=== PATIENT | male | born 1995 | race Caucasian/White ===

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

== ENCOUNTER 2021-08-26 20:56 | Emergency (ER) | payer SELFPAY ==
[~2021-08-26] VITALS: Ht 182 cm; Wt 61.0 kg
[2021-08-26] MEDS ORDERED: LIDOCAINE 2% VISCOUS 15 ML UDC PO ONE (21:15)
[2021-08-26] MEDS ORDERED: ANTACID SUSP 30 ML UDC (MYLANTA) PO ONE (21:15)
[2021-08-26] MEDS ORDERED: ALPRAZolam 0.25 MG (XANAX) TAB PO ONE (21:15)
--- NOTE | 2021-08-26 21:15 | ED EENT ---
History of Present Illness General Chief Complaint: Oral/Throat Problems Stated Complaint: COVID + Source: patient Exam Limitations: no limitations (JERALD ALEJANDRE APRN) History of Present Illness Date Seen by Provider: Aug 26, 2021 Time Seen by Provider: 21:10 Initial Comments To ER with sore throat difficulty swallowing. States that he awakens in the night and needs to get a drink of water several times because his throat is sore and he feels like he has thick mucus. He denies much of a cough. He had COVID at the end of July and was released from quarantine back to work August 17. He denies fevers or chills. This has caused him to have several panic attacks. Timing/Duration: this morning Severity: moderate Location: throat Prearrival Treatment: prescription meds (Protonix by an urgent care for the symptoms last week but they have not improved his symptoms) Associated Symptoms: sore throat (JERALD ALEJANDRE APRN) Allergies and Home Medications Allergies Coded Allergies: NKANo Known Allergies (Verified Allergy, Unknown, 09/02/08) Patient Home Medication List Home Medication List Reviewed: Yes (JERALD ALEJANDRE APRN) Lorazepam (Ativan) 0.5 Mg Tablet, 0.5 MG PO BID PRN for ANXIETY Prescribed by: JERALD ALEJANDRE on 08/26/212201 Prednisone (Prednisone) 20 Mg Tab, 40 MG PO DAILY Prescribed by: JERALD ALEJANDRE on 08/26/212200 Review of Systems Review of Systems Constitutional: see HPI Eyes: No Symptoms Reported Ears: No Symptoms Reported Nose: no symptoms reported Mouth: no symptoms reported Throat: no symptoms reported Respiratory: no symptoms reported Cardiovascular: no symptoms reported Musculoskeletal: no symptoms reported Skin: no symptoms reported (JERALD ALEJANDRE APRN) Past Ksvhyvj-Aptptb-Pzhtym Hx Patient Social History Tobacco Use?: No Use of E-Cig and/or Vaping dev: Yes E-Cig or Vaping type used: Nicotine Use of E-Cig and/or Vaping Khoa: Current Everyday User Substance use?: Yes Substance type: Marijuana Substance frequency: Several times a month Alcohol Use?: No Pt feels they are or have been: No (JERALD ALEJANDRE APRN) Immunizations Up To Date Tetanus Booster (TDap): Unknown Influenza Vaccine Up-to-Date: No; Not Current (JERALD ALEJANDRE APRN) Seasonal Allergies Seasonal Allergies: No (JERALD ALEJANDRE APRN) Past Medical History Adenoidectomy, Appendectomy, Orthopedic, Tonsillectomy Reproductive Disorders: No (JERALD ALEJANDRE APRN) Family Medical History Heart Disease, Diabetes, Hypertension, Other Conditions/Hx (JERALD ALEJANDRE APRN) Physical Exam Vital Signs Vital Signs - First Documented 08/26/21 21:00 Temp 36.2 Pulse 107 Resp 18 B/P (MAP) 139/89 (106) Pulse Ox 98 O2 Delivery Room Air (ELISABETH,KATE K DO) Height, Weight, BMI Height: 6'1" Weight: 145lbs. oz. 65.214252xq; 19.13 BMI Method:Stated General Appearance: WD/WN, no apparent distress Eyes: bilateral eye normal inspection, bilateral eye PERRL, bilateral eye EOMI Ears: bilateral ear auricle normal, bilateral ear canal normal, bilateral ear TM normal Mouth/Throat: normal mouth inspection; No mandibular swelling, No pharynx swelling, No pharynx tenderness, No tongue swollen, No tonsillar exudate, No tonsillar swelling, No trismus, No uvula swelling; other (Tonsils are absent, cobblestoning of the oropharynx) Neck: non-tender, full range of motion, supple, normal inspection; No lymphadenopathy (R), No lymphadenopathy (L), No tender lateral, No tender midline Respiratory: no respiratory distress, no accessory muscle use Gastrointestinal: normal bowel sounds, non tender, soft Neurologic/Psychiatric: alert, normal mood/affect, oriented x 3 Skin: warm/dry (JERALD ALEJANDRE APRN) Procedures/Interventions Suture Size: 3-0 (JERALD ALEJANDRE APRN) Progress/Results/Core Measures Results/Orders Lab Results Laboratory Tests Test 08/26/21 21:20 Range/Units White Blood Count 8.3 4.3-11.0 10^3/uL Red Blood Count 4.39 4.30-5.52 10^6/uL Hemoglobin 13.3 13.3-17.7 g/dL Hematocrit 40 40-54 % Mean Corpuscular Volume 90 80-99 fL Mean Corpuscular Hemoglobin 30 25-34 pg Mean Corpuscular Hemoglobin Concent 34 32-36 g/dL Red Cell Distribution Width 11.7 10.0-14.5 % Platelet Count 216 130-400 10^3/uL Mean Platelet Volume 10.0 9.0-12.2 fL Immature Granulocyte % (Auto) 0 % Neutrophils (%) (Auto) 54 42-75 % Lymphocytes (%) (Auto) 36 12-44 % Monocytes (%) (Auto) 8 0-12 % Eosinophils (%) (Auto) 2 0-10 % Basophils (%) (Auto) 1 0-10 % Neutrophils # (Auto) 4.5 1.8-7.8 10^3/uL Lymphocytes # (Auto) 3.0 1.0-4.0 10^3/uL Monocytes # (Auto) 0.6 0.0-1.0 10^3/uL Eosinophils # (Auto) 0.2 0.0-0.3 10^3/uL Basophils # (Auto) 0.0 0.0-0.1 10^3/uL Immature Granulocyte # (Auto) 0.0 0.0-0.1 10^3/uL Sodium Level 139 135-145 MMOL/L Potassium Level 3.9 3.6-5.0 MMOL/L Chloride Level 101 98-107 MMOL/L Carbon Dioxide Level 28 21-32 MMOL/L Anion Gap 10 5-14 MMOL/L Blood Urea Nitrogen 12 7-18 MG/DL Creatinine 1.04 0.60-1.30 MG/DL Estimat Glomerular Filtration Rate 89 BUN/Creatinine Ratio 12 Glucose Level 112 H 70-105 MG/DL Calcium Level 9.1 8.5-10.1 MG/DL Corrected Calcium 8.5-10.1 MG/DL Total Bilirubin 1.3 H 0.1-1.0 MG/DL Aspartate Amino Transf (AST/SGOT) 18 5-34 U/L Alanine Aminotransferase (ALT/SGPT) 13 0-55 U/L Alkaline Phosphatase 59 40-136 U/L C-Reactive Protein High Sensitivity 0.03 0.00-0.50 MG/DL Total Protein 7.5 6.4-8.2 GM/DL Albumin 4.7 H 3.2-4.5 GM/DL Monoscreen NEGATIVE NEGATIVE (ELISABETHKATE K DO) Medications Given in ED Current Medications Medications Dose Ordered Sig/Soniya Route Start Time Stop Time Status Last Admin Dose Admin Al Hydrox/Mg Hydrox/Simethicone 30 ml ONCE ONCE PO 08/26/21 21:15 08/26/21 21:16 DC 08/26/21 21:18 30 ML Alprazolam 0.25 mg ONCE ONCE PO 08/26/21 21:15 08/26/21 21:16 DC 08/26/21 21:18 0.25 MG Lidocaine HCl 5 ml ONCE ONCE PO 08/26/21 21:15 08/26/21 21:16 DC 08/26/21 21:18 5 ML (KATE BARBER DO) Vital Signs/I&O 08/26/21 08/26/21 21:00 22:13 Temp 36.2 36.2 Pulse 107 100 Resp 18 18 B/P (MAP) 139/89 (106) 127/89 Pulse Ox 98 98 O2 Delivery Room Air Room Air (KATE BARBER DO) Departure Impression Primary Impression: Pharyngitis Additional Impression: Postnasal drip Disposition: 01 HOME, SELF-CARE Condition: Stable Departure-Patient Inst. Decision time for Depature: 21:52 (JERALD ALEJANDRE APRN) [place]: [facility] [place] (PCP/Family) Primary Care Physician Patient Instructions: Sore Throat in Adults Add. Discharge Instructions: 1. Return to ER for any concerns 2. Follow-up with your doctor next week 3. Use your numbing spray as needed. Also look for Cepacol lozenges at [facility] or [facility]. They're cough drops with a numbing medication in them that can be helpful. Take steroids as directed daily for 3 days. Take ativan as needed twice a day for JOJO but do not operate heavy machinery or equipment for a few hours after taking this because it can be sedating. All discharge instructions reviewed with patient and/or family. Voiced unders tanding. Scripts Lorazepam (Ativan) 0.5 Mg Tablet 0.5 MG PO BID PRN for ANXIETY for 7 Days, #10 TAB Prov: JERALD ALEJANDRE APRN 08/26/21 Prednisone (Prednisone) 20 Mg Tab 40 MG PO DAILY, #8 TAB Prov: JERALD ALEJANDRE APRN 08/26/21 ATTENDING PHYSICIAN NOTE: I WAS PHYSICALLY PRESENT ER PHYSICIAN WHEN THIS PATIENT WAS IN ER, BUT I WAS NOT INVOLVED IN ANY DECISION MAKING OR ANY CARE OF THIS PATIENT. (KATE BARBER DO) JERALD ALEJANDRE APRN Aug 26, 2021 21:15 KATE BARBER DO Aug 27, 2021 03:16
[2021-08-26 21:33] LABS: BASOPHILS % (AUTO) 1 % (0-10); EOSINOPHILS # (AUTO) 0.2 10^3/uL (0.0-0.3); EOSINOPHILS % (AUTO) 2 % (0-10); HEMATOCRIT 40 % (40-54); HEMOGLOBIN 13.3 g/dL (13.3-17.7); LYMPHOCYTES % (AUTO) 36 % (12-44); MEAN CORPUSCULAR HEMOGLOBIN 30 pg (25-34); MEAN CORPUSCULAR HGB CONC 34 g/dL (32-36); MEAN CORPUSCULAR VOLUME 90 fL (80-99); MONOCYTES # (AUTO) 0.6 10^3/uL (0.0-1.0); MONOCYTES % (AUTO) 8 % (0-12); NEUTROPHILS # (AUTO) 4.5 10^3/uL (1.8-7.8); NEUTROPHILS % (AUTO) 54 % (42-75); PLATELET COUNT 216 10^3/uL (130-400); WHITE BLOOD COUNT 8.3 10^3/uL (4.3-11.0)
[2021-08-26 21:38] LABS: ALBUMIN 4.7 GM/DL (3.2-4.5); CHLORIDE 101 MMOL/L (98-107); POTASSIUM 3.9 MMOL/L (3.6-5.0); SODIUM 139 MMOL/L (135-145)
[2021-08-26 21:39] LABS: CALCIUM 9.1 MG/DL (8.5-10.1)
[2021-08-26 21:41] LABS: GLUCOSE 112 MG/DL (70-105); TOTAL PROTEIN 7.5 GM/DL (6.4-8.2)
[2021-08-26 21:42] LABS: BILIRUBIN,TOTAL 1.3 MG/DL (0.1-1.0); CARBON DIOXIDE 28 MMOL/L (21-32)
[2021-08-26 21:44] LABS: ALKALINE PHOSPHATASE 59 U/L (40-136); CREATININE SERUM 1.04 MG/DL (0.60-1.30); GFR ESTIMATED 89
[2021-08-26 21:45] LABS: BUN/CREATININE RATIO 12
[2021-08-26 21:47] LABS: ALANINE AMINOTRANSFERASE 13 U/L (0-55)
[2021-08-26] MEDS ORDERED: PRD20T PO (22:01)
[2021-08-26] MEDS ORDERED: LORA-404 PO (22:01)
[2021-08-26] MEDS ORDERED: RX-LORAZEPAM (ATIVAN) 0.5 MG TAB PPK#4 PO STA (22:06)
[2021-08-26 22:13] VITALS: BP 127/89
== END 2021-08-26 22:15 | disposition home or self-care (01) ==
LOC: EDUNIT# 20:56 → ER 20:58
DX: J02.9 Acute pharyngitis, unspecified (principal); R09.82 Postnasal drip; F17.290 Nicotine dependence, other tobacco product, uncomplicated; Z86.16 Personal history of COVID-19
CPT/HCPCS: 36415; 80053; 85025; 86141; 86308

== ENCOUNTER 2021-09-07 18:42 | Emergency (ER) | payer SELFPAY ==
[~2021-09-07 18:42] MED LIST changes: +LORA-404 PO; +PRD20T PO
--- NOTE | 2021-09-07 19:24 | ED EENT ---
History of Present Illness General Chief Complaint: Oral/Throat Problems Stated Complaint: COUGH, SORE THROAT, CONGESTION Source: patient Exam Limitations: no limitations History of Present Illness Date Seen by Provider: Sep 07, 2021 Time Seen by Provider: 19:22 Initial Comments Patient is a 25-year-old male who presents ED with sore throat. Sore throat over the past month. Difficulty swallowing. Patient states he was seen here with negative work-up. Was prescribed Ativan and prednisone without much improvement. Patient states that he continued having sore throat was prescribed antibiotics this past Tuesday without much improvement. Negative strep. Diagnosed with Covid late July with quarantine until 16 August. Patient denies of any diarrhea, vomiting, abdominal pain, chest pain. Mild nasal congestion Allergies and Home Medications Allergies Coded Allergies: JOEYANo Known Allergies (Verified Allergy, Unknown, 09/02/08) Patient Home Medication List Home Medication List Reviewed: Yes Lorazepam (Ativan) 0.5 Mg Tablet, 0.5 MG PO BID PRN for ANXIETY Prescribed by: JERALD ALEJANDRE on 08/26/212201 Prednisone (Prednisone) 20 Mg Tab, 40 MG PO DAILY Prescribed by: JERALD ALEJANDRE on 08/26/212200 Review of Systems Review of Systems Constitutional: No chills, No fever, No malaise Eyes: Denies Drainage, Denies Inflammation Ears: Denies Dizziness, Denies Pain, Denies Bloody Discharge, Denies Clear Discharge Nose: congestion; denies bloody discharge Mouth: swelling Throat: pain, swelling, painful swallowing Respiratory: cough; No short of breath Gastrointestinal: No abdominal pain, No diarrhea, No hematemesis, No nausea, No vomiting Musculoskeletal: No back pain, No joint pain Past Nbdstzd-Gbmqty-Cayiuw Hx Patient Social History Tobacco Use?: Yes E-Cig or Vaping type used: Nicotine Substance use?: No Alcohol Use?: No Immunizations Up To Date Tetanus Booster (TDap): Unknown Seasonal Allergies Seasonal Allergies: No Past Medical History Adenoidectomy, Appendectomy, Orthopedic, Tonsillectomy Reproductive Disorders: No Family Medical History Heart Disease, Diabetes, Hypertension, Other Conditions/Hx Physical Exam Vital Signs Vital Signs - First Documented 09/07/21 19:09 Temp 36.4 Pulse 61 Resp 16 B/P (MAP) 127/71 (89) Pulse Ox 98 O2 Delivery Room Air Height, Weight, BMI Height: 6'1" Weight: 145lbs. oz. 65.927307ue; 18.00 BMI Method:Stated General Appearance: WD/WN, no apparent distress Eyes: bilateral eye normal inspection, bilateral eye EOMI, bilateral eye abnormal EOM Ears: bilateral ear auricle normal, bilateral ear canal normal, bilateral ear TM normal Nose: normal inspection Mouth/Throat: normal mouth inspection, other (Cobblestone oropharynx) Neck: non-tender, full range of motion, supple Cardiovascular: regular rate, rhythm, no edema, no gallop, no JVD Respiratory: chest non-tender, lungs clear, normal breath sounds, no respiratory distress Gastrointestinal: normal bowel sounds, non tender, soft, no organomegaly Skin: normal color, warm/dry Procedures/Interventions Suture Size: 3-0 Progress/Results/Core Measures Results/Orders My Orders Orders - KYLIE HAILE Lidocaine 2% Viscous 15 Ml (Xylocaine Vi (09/07/21 19:45) Antacid Suspension (Mylanta Suspension (09/07/21 19:45) Medications Given in ED Current Medications Medications Dose Ordered Sig/Soniya Route Start Time Stop Time Status Last Admin Dose Admin Al Hydrox/Mg Hydrox/Simethicone 30 ml ONCE ONCE PO 09/07/21 19:45 09/07/21 19:46 DC 09/07/21 19:42 30 ML Lidocaine HCl 15 ml ONCE ONCE PO 09/07/21 19:45 09/07/21 19:46 DC 09/07/21 19:42 15 ML Vital Signs/I&O 09/07/21 09/07/21 19:09 20:00 Temp 36.4 36.4 Pulse 61 61 Resp 16 16 B/P (MAP) 127/71 (89) 127/71 Pulse Ox 98 98 O2 Delivery Room Air Room Air Departure Communication (Admissions) Patient was seen here on the twelfth with negative work-up. Was discharged with prednisone and Ativan. He states he has been seen twice since then and was recommended follow-up with ENT with continued sore throat. Appears to be more lower throat near his thyroid. No palpable mass or enlargement of the thyroid. He is not tachycardic, weight loss, change in hair, chest pain, tachycardia, irritability or sweating. Did offered to check a thyroid hormone but patient refused. Had a negative recent Covid. He reported negative strep outpatiently. Currently on antibiotics which he cannot recall the name. He is able to tolerate his secretions. No evidence of stridor. No enlarged lymph nodes. Denies of any drug use. He reports cutting down smoking. He has been taken PPI as the clinic stated they were concerned for acid reflux. He states GI cocktail improves his symptoms. Patient was given GI cocktail with improvement. Did offer CT of the neck to rule out any acute abnormality such as a mass. Patient would rather wait at this time. He does need to follow-up with ENT. Patient does have cobblestoning to the back of the throat. Discussed postnasal drip as a potential etiology. Discussed acid reflux as well and diet changes. Lung sounds clear bilateral. Discussed Sudafed. Patient would likely benefit with the potential scope. No purulent drainage noted the back of the throat. No neck swelling. Patient appears anxious. Impression Primary Impression: Sore throat Disposition: 01 HOME, SELF-CARE Condition: Stable Departure-Patient Inst. Decision time for Depature: 19:39 Referrals: ANDREAS MORRIS MD [facility] (PCP/Family) Primary Care Physician Patient Instructions: Sore Throat, Adult ED KYLIE HAILE Sep 07, 2021 19:24
[2021-09-07] MEDS ORDERED: ANTACID SUSP 30 ML UDC (MYLANTA) PO ONE (19:45)
[2021-09-07] MEDS ORDERED: LIDOCAINE 2% VISCOUS 15 ML UDC PO ONE (19:45)
[2021-09-07 20:00] VITALS: BP 127/71
== END 2021-09-07 20:00 | disposition home or self-care (01) ==
LOC: EDUNIT# 18:42 → ER 18:49
DX: J02.9 Acute pharyngitis, unspecified (principal)
CPT/HCPCS: 99283

== ENCOUNTER 2021-09-08 17:30 | Emergency (ER) | payer OTHER ==
[~2021-09-08] VITALS: Ht 182 cm; Wt 61.2 kg
[2021-09-08 17:35] VITALS: BP 105/71
--- NOTE | 2021-09-08 18:11 | ED General ---
General Chief Complaint: Exposure Stated Complaint: NEEDLE STICK Nursing Triage Note: PT AMBULATORY TO ER. REPORTS WAS WORKING AND HAND WAS IN A DRAIN, PT GOT STUCK BY A NEEDLE TO L INDEX FINGER, REPORTS IMMEDIATELY CLEANED WOUND. LAST TETANUS APPROX 5 YEARS AGO. Source of Information: Patient Exam Limitations: No Limitations History of Present Illness Date Seen by Provider: Sep 08, 2021 Time Seen by Provider: 18:08 Initial Comments Patient is a 25-year-old male who presents ED for work comp injury. Patient was stuck by a unknown needle while working. Works for [employer]. Patient states he is wearing latex gloves. Was stuck by a needle on the left index finger. He report mild bleeding. Normal active range of motion. 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 Patient believes he is up-to-date on his hep B vaccine. Not up-to-date on his tetanus within the past 5 years. No current swelling or bruising. Allergies and Home Medications Allergies Coded Allergies: NKANo Known Allergies (Verified Allergy, Unknown, 09/02/08) Patient Home Medication List Home Medication List Reviewed: Yes Lorazepam (Ativan) 0.5 Mg Tablet, 0.5 MG PO BID PRN for ANXIETY Prescribed by: JERALD ALEJANDRE on 08/26/212201 Prednisone (Prednisone) 20 Mg Tab, 40 MG PO DAILY Prescribed by: JERALD ALEJANDRE on 08/26/212200 Review of Systems Review of Systems Constitutional: No chills, No diaphoresis, No dizziness, No fever EENTM: No ear pain, No eye pain, No tearing, No vision loss Respiratory: No dyspnea on exertion, No orthopnea, No short of breath Cardiovascular: No chest pain Gastrointestinal: No abdominal pain, No diarrhea, No nausea, No vomiting Genitourinary: No decreased output, No dysuria, No frequency Musculoskeletal: No back pain, No joint swelling, No muscle pain Skin: other (Puncture wound left dorsum index finger. No swelling, erythema or ecchymosis.) Past Hwrqsbr-Kgpgec-Nvzkky Hx Patient Social History Use of E-Cig and/or Vaping dev: Yes Substance use?: No Alcohol Use?: No Pt feels they are or have been: No Immunizations Up To Date Tetanus Booster (TDap): Unknown Seasonal Allergies Seasonal Allergies: No Past Medical History Adenoidectomy, Appendectomy, Orthopedic, Tonsillectomy Reproductive Disorders: No Family Medical History Heart Disease, Diabetes, Hypertension, Other Conditions/Hx Physical Exam Vital Signs Vital Signs - First Documented Capillary Refill : Height, Weight, BMI Height: 6'1" Weight: 145lbs. oz. 65.674252tx; 18.00 BMI Method:Stated General Appearance: No Apparent Distress, WD/WN Eyes: Bilateral Eye Normal Inspection, Bilateral Eye PERRL, Bilateral Eye EOMI HEENT: PERRL/EOMI, TMs Normal, Normal ENT Inspection, Pharynx Normal Neck: Full Range of Motion, Normal Inspection, Non Tender, Supple Respiratory: Chest Non Tender, Lungs Clear, Normal Breath Sounds, No Accessory Muscle Use, No Respiratory Distress Cardiovascular: Regular Rate, Rhythm, No Edema, No Gallop, No JVD Gastrointestinal: Normal Bowel Sounds, No Organomegaly, No Pulsatile Mass, Non Tender, Soft Extremity: Other (Puncture wound to left dorsum index finger. No swelling, erythema or ecchymosis.) Skin: Normal Color, Warm/Dry Procedures/Interventions Suture Size: 3-0 Progress/Results/Core Measures Suspected Sepsis SIRS Temperature: Pulse: 67 Respiratory Rate: 20 Blood Pressure 105 /71 Mean: 82 Results/Orders Lab Results Laboratory Tests Test 09/08/21 18:26 Range/Units My Orders Orders - KYLIE HAILE Hepatitis B Surface Antibody (09/08/21 18:13) Hepatitis Be Antigen (09/08/21 18:13) Hepatitis C Antibody (09/08/21 18:13) Hiv 1&2 Antibody (09/08/21 18:13) Dipht,Pertuss(Acell),Tet Adult (Boostrix (09/08/21 18:15) Medications Given in ED Current Medications Medications Dose Ordered Sig/Soniya Route Start Time Stop Time Status Last Admin Dose Admin Diphtheria/ Tetanus/Acell Pertussis 0.5 ml ONCE ONCE IM 09/08/21 18:15 09/08/21 18:16 DC 09/08/21 18:22 0.5 ML Vital Signs/I&O 09/08/21 09/08/21 17:35 17:35 Temp 36.6 36.6 Pulse 67 67 Resp 20 20 B/P (MAP) 105/71 (82) 105/71 Pulse Ox 98 98 O2 Delivery Room Air Room Air Capillary Refill : Blood Pressure Mean: 82 Departure Communication (Admissions) Patient has a small puncture wound to the left index finger. No active bleeding. Updated patient's tetanus. This is a work comp injury. Discussed patient with occupational health who recommended hep B, hep C HIV testing with no treatment prophylactically at this time. Patient appears in no acute distress. Patient believes he is up-to-date on his hep B vaccines. Extensive irrigation and cleaning before arrival with soap and water. Discussed Neosporin. Continue monitoring. Discussed patient with HOIST WORKER at occupational health who will follow up with patient on Tuesday with results. We will continue monitoring. Recommend no treatment prophylactically at this time. Impression Primary Impression: Needle stick injury Disposition: HOME, SELF-CARE Condition: Stable Departure-Patient Inst. Decision time for Depature: 18:42 Referrals: [facility] [place] Primary Care Physician Patient Instructions: Wound Care Add. Discharge Instructions: Occupational health will contact you. Keep the area clean All discharge instructions reviewed with patient and/or family. Voiced understanding. KYLIE HAILE Sep 08, 2021 18:11
[2021-09-08] MEDS ORDERED: TETANUS,DIPTH,PERTUSS P/F (BOOSTRIX) 0.5 ML VIAL IM ONE (18:15)
[2021-09-09 23:38] LABS: HEPATITIS C ANTIBODY C Non-Reactive (Non-Reactive)
== END 2021-09-08 18:51 | disposition home or self-care (01) ==
LOC: EDUNIT# 17:30 → ER 17:34
DX: S61.231A Puncture wound without foreign body of left index finger without damage to nail, initial encounter (principal); I10 Essential (primary) hypertension; E11.9 Type 2 diabetes mellitus without complications; Z23 Encounter for immunization; W46.1XXA Contact with contaminated hypodermic needle, initial encounter
CPT/HCPCS: 86703; 86803; 87350; 99283; G0499; 36415; 86706; 90715

== ENCOUNTER 2021-09-12 22:11 | Emergency (ER) | payer SELFPAY ==
[~2021-09-12] VITALS: Ht 185.5 cm; Wt 61.2 kg
--- NOTE | 2021-09-12 23:25 | ED EENT ---
History of Present Illness General Chief Complaint: Oral/Throat Problems Stated Complaint: THROAT SWELLING/FEELING OF TROUBLE BREATHING Nursing Triage Note: PT ARRIVED BY PRIVATE VEHICLE WITH CHIEF COMPLAINT OF THROAT PAIN. PT IS ALERT, ORIENTED X 4 AND AMBULATORY. PT STATED HE HAS BEEN HAVING ONGOING ISSUES FOR THE PAST 3 WEEKS OF DIFFICULTY SWALLOWING, THROAT PAIN. HE WAS TOLD TO SEE ENT AND HAS AN APPOINTMENT BUT IT HAS GOTTEN WORSE TODAY. PT WAS RECENTLY SEEN AT CLINIC AND THEY CHECKED HIS THYROID BUT RESULTS AREN'T BACK YET. PT STATED THEY THINK HE MIGHT NEED AN US. PT'S VITALS WERE DONE AND PT IS NOT IN RESPIRATORY DISTRESS. Source: patient Exam Limitations: no limitations History of Present Illness Date Seen by Provider: Sep 12, 2021 Time Seen by Provider: 23:00 Initial Comments Patient to ER by private conveyance with chief complaint of sore throat going on for past 3 weeks. Is progressively gotten worse over the past 3 to 4 days. Initially did a course of steroids followed by a course of amoxicillin. He has not had any tests to prove strep. He was referred on to an ENT in [place] and has an appointment on Tuesday, 4 days from now. He says it hurts to swallow foods has been just doing liquids. He feels like he is lost about 10 pounds over the past week due to his liquid diet. No nausea vomiting diarrhea. No EGD or history of strictures. No history of acid reflux. He was put on an antiacid medicine for 2 weeks which made no difference in his symptoms. Allergies and Home Medications Allergies Coded Allergies: NKANo Known Allergies (Verified Allergy, Unknown, 09/02/08) Patient Home Medication List Home Medication List Reviewed: Yes Lorazepam (Ativan) 0.5 Mg Tablet, 0.5 MG PO BID PRN for ANXIETY Prescribed by: JERALD ALEJANDRE on 08/26/212201 Nystatin (Nystatin) 100,000 Unit/1 Ml Oral.susp, 5 ML PO QID Prescribed by: MARK CASANOVA on 09/13/21 0020 Prednisone (Prednisone) 20 Mg Tab, 40 MG PO DAILY Prescribed by: JERALD ALEJANDRE on 08/26/212200 Review of Systems Review of Systems Constitutional: No chills, No diaphoresis Eyes: Denies Blindness, Denies Blurred Vision, Denies Drainage Ears: Denies Dizziness, Denies Pain Nose: denies clots, denies congestion Mouth: denies clots, denies pain, denies swelling Throat: see HPI, pain, hoarse (Scant); denies muffled; painful swallowing; denies difficulty with fluids Respiratory: No cough, No phlegm, No short of breath Cardiovascular: No chest pain, No edema All Other Systems Reviewed Negative Unless Noted: Yes Past Hawfnku-Krlmcc-Occacz Hx Patient Social History Tobacco Use?: Yes Use of E-Cig and/or Vaping dev: Yes Substance use?: Yes Substance type: Marijuana Alcohol Use?: No Pt feels they are or have been: No Immunizations Up To Date Tetanus Booster (TDap): Unknown Seasonal Allergies Seasonal Allergies: No Past Medical History Adenoidectomy, Appendectomy, Orthopedic, Tonsillectomy Reproductive Disorders: No Family Medical History Heart Disease, Diabetes, Hypertension, Other Conditions/Hx Physical Exam Vital Signs Vital Signs - First Documented 09/12/21 22:25 Temp 36.2 Pulse 105 Resp 16 B/P (MAP) 121/72 (88) Pulse Ox 99 O2 Delivery Room Air Height, Weight, BMI Height: 6'1" Weight: 145lbs. oz. 65.683541px; 17.00 BMI Method:Stated General Appearance: WD/WN, no apparent distress Eyes: bilateral eye normal inspection, bilateral eye PERRL, bilateral eye EOMI Ears: bilateral ear auricle normal, bilateral ear canal normal, bilateral ear TM normal Nose: normal inspection; No active bleeding Mouth/Throat: No foreign body; other (Erythematous retropharynx with white lacy plaques on the back of the tongue. No swelling of the uvula or fosses. No stridor) Neck: full range of motion, supple, normal inspection, other (No goiter or nodule or appearance or palpation of the thyroid.) Cardiovascular: normal peripheral pulses, regular rate, rhythm Respiratory: lungs clear, normal breath sounds, no respiratory distress, no accessory muscle use Gastrointestinal: normal bowel sounds, non tender, soft Neurologic/Psychiatric: alert, normal mood/affect, oriented x 3 Procedures/Interventions Suture Size: 3-0 Progress/Results/Core Measures Results/Orders My Orders Orders - MARK CASANOVA Leslie Prep (09/12/21 23:26) Vital Signs/I&O 09/12/21 22:25 Temp 36.2 Pulse 105 Resp 16 B/P (MAP) 121/72 (88) Pulse Ox 99 O2 Delivery Room Air Blood Pressure Mean: 88 Progress Progress Note : Time: 23:30 Progress Note White lacy plaque looks like thrush. We will get a LESLIE prep to prove this. He still would encourage him to follow-up with ENT for thorough evaluation as well as a primary care doctor to continue work-up. He has a TSH and thyroid labs obtained yesterday pending. He does not look to have a goiter nor does he like to be on thyrotoxicosis storm. He certainly has concerning gaunt appearance that would need a thorough outpatient examination. He is not dehydrated. He is drinking fluids well. Departure Impression Primary Impression: Thrush of mouth and esophagus Disposition: HOME, SELF-CARE Condition: Stable Departure-Patient Inst. Decision time for Depature: 00:18 Referrals: [facility] (PCP/Family) Primary Care Physician Patient Instructions: Thrush (DC) Add. Discharge Instructions: Nystatin 5 mL swish around your mouth and swallow 4 times a day for the next 2 weeks. Keep your follow-up appointment with ENT. Chloraseptic sprays, salt water gargles, throat lozenges as necessary for pain All discharge instructions reviewed with patient and/or family. Voiced understanding. Scripts Nystatin (Nystatin) 100,000 Unit/1 Ml Oral.susp 5 ML PO QID for 14 Days, #300 ML 0 Refills Prov: MARK CASANOVA 09/13/21 MARK CASANOVA Sep 12, 2021 23:25
[2021-09-13] MEDS ORDERED: NYST1000 PO (00:20)
[2021-09-13 00:54] VITALS: BP 114/72
== END 2021-09-13 00:54 | disposition home or self-care (01) ==
LOC: EDUNIT# 22:11 → ER 22:14
DX: B37.0 Candidal stomatitis (principal); B37.81 Candidal esophagitis; Z72.0 Tobacco use
CPT/HCPCS: 87220; 99283

== ENCOUNTER 2021-09-23 20:03 | Emergency (ER) | payer SELFPAY ==
[~2021-09-23] VITALS: Ht 185.5 cm; Wt 61.2 kg
[~2021-09-23 20:03] MED LIST changes: +NYST1000 PO
[2021-09-23] MEDS ORDERED: NS IV 1000 ML 1,000 ML ONE (21:09)
[2021-09-23] MEDS ORDERED: PROMETHAZINE INJ 25 MG/ML (PHENERGAN) AMP ONE (21:09)
--- NOTE | 2021-09-23 21:25 | ED General ---
General Stated Complaint: FEVER/VOMITING/BODYACHES/CHILLS Source of Information: Patient Exam Limitations: No Limitations (JERALD ALEJANDRE APRN) History of Present Illness Date Seen by Provider: Sep 23, 2021 Time Seen by Provider: 21:23 Initial Comments To ER with chills vomiting nausea diarrhea onset this morning. Was seen at [facility] and given an injection of a steroid a pain medication and some nausea medicine which did not help. Timing/Duration: 12 Hours Severity: Moderate Associated Systoms: Denies Symptoms, Nausea/Vomiting (JERALD ALEJANDRE APRN) Allergies and Home Medications Allergies Coded Allergies: NKANo Known Allergies (Verified Allergy, Unknown, 09/02/08) Patient Home Medication List Home Medication List Reviewed: Yes (JERALD ALEJANDRE APRN) Hydrocodone/Acetaminophen (Hydrocodone-Acetamin 5-325 mg) 1 Each Tablet, 1 TAB PO Q4H PRN for PAIN-MODERATE (5-7) Prescribed by: JERALD ALEJANDRE on 09/23/212251 Lorazepam (Ativan) 0.5 Mg Tablet, 0.5 MG PO BID PRN for ANXIETY Prescribed by: JERALD ALEJANDRE on 08/26/212201 Nystatin (Nystatin) 100,000 Unit/1 Ml Oral.susp, 5 ML PO QID Prescribed by: MARK CASANOVA on 09/13/21 0020 Prednisone (Prednisone) 20 Mg Tab, 40 MG PO DAILY Prescribed by: JERALD ALEJANDRE on 08/26/212200 Review of Systems Review of Systems Constitutional: see HPI, chills, fever EENTM: see HPI Respiratory: no symptoms reported Cardiovascular: no symptoms reported Gastrointestinal: nausea, vomiting Genitourinary: no symptoms reported Musculoskeletal: see HPI Skin: no symptoms reported Psychiatric/Neurological: No Symptoms Reported Hematologic/Lymphatic: No Symptoms Reported Immunological/Allergic: no symptoms reported (JERALD ALEJANDRE APRN) Past Ccntxkq-Kjqabd-Jumpqp Hx Immunizations Up To Date Tetanus Booster (TDap): Unknown (JERALD ALEJANDRE APRN) Seasonal Allergies Seasonal Allergies: No (JERALD ALEJANDRE APRN) Past Medical History Adenoidectomy, Appendectomy, Orthopedic, Tonsillectomy Reproductive Disorders: No (JERALD ALEJANDRE APRN) Family Medical History Heart Disease, Diabetes, Hypertension, Other Conditions/Hx (JERALD ALEJANDRE APRN) Physical Exam Vital Signs Vital Signs - First Documented 09/23/21 20:50 Temp 36.3 Pulse 76 Resp 18 B/P (MAP) 111/70 (84) Pulse Ox 100 O2 Delivery Room Air (KATE BARBER ) Vital Signs Capillary Refill : (JERALD ALEJANDRE APRN) Height, Weight, BMI Height: 6'1" Weight: 145lbs. oz. 65.559170bi; 17.00 BMI Method:Stated General Appearance: No Apparent Distress, WD/WN Eyes: Bilateral Eye Normal Inspection, Bilateral Eye PERRL, Bilateral Eye EOMI Neck: Full Range of Motion, Normal Inspection Respiratory: No Accessory Muscle Use, No Respiratory Distress Cardiovascular: Regular Rate, Rhythm, Normal Peripheral Pulses Gastrointestinal: Normal Bowel Sounds, Non Tender, Soft Extremity: Normal Capillary Refill, Normal Inspection Neurologic/Psychiatric: Alert, Oriented x3 Skin: Normal Color, Warm/Dry (JERALD ALEJANDRE APRN) Procedures/Interventions Suture Size: 3-0 (JERALD ALEJANDRE APRN) Progress/Results/Core Measures Suspected Sepsis SIRS Temperature: Pulse: Respiratory Rate: Laboratory Tests 09/23/21 21:30: White Blood Count 12.7H Blood Pressure / Mean: Laboratory Tests 09/23/21 21:30: Creatinine 0.97, Platelet Count 219, Total Bilirubin 2.4H (JERALD ALEJANDRE APRN) Results/Orders Lab Results Laboratory Tests Test 09/23/21 21:25 09/23/21 21:30 09/23/21 22:03 Range/Units Influenza Type A Antigen NEGATIVE NEGATIVE Influenza Type B Antigen NEGATIVE NEGATIVE White Blood Count 12.7 H 4.3-11.0 10^3/uL Red Blood Count 4.94 4.30-5.52 10^6/uL Hemoglobin 15.2 13.3-17.7 g/dL Hematocrit 45 40-54 % Mean Corpuscular Volume 92 80-99 fL Mean Corpuscular Hemoglobin 31 25-34 pg Mean Corpuscular Hemoglobin Concent 34 32-36 g/dL Red Cell Distribution Width 12.0 10.0-14.5 % Platelet Count 219 130-400 10^3/uL Mean Platelet Volume 9.7 9.0-12.2 fL Immature Granulocyte % (Auto) 0 % Neutrophils (%) (Auto) 90 H 42-75 % Lymphocytes (%) (Auto) 4 L 12-44 % Monocytes (%) (Auto) 4 0-12 % Eosinophils (%) (Auto) 1 0-10 % Basophils (%) (Auto) 0 0-10 % Neutrophils # (Auto) 11.5 H 1.8-7.8 10^3/uL Lymphocytes # (Auto) 0.5 L 1.0-4.0 10^3/uL Monocytes # (Auto) 0.5 0.0-1.0 10^3/uL Eosinophils # (Auto) 0.1 0.0-0.3 10^3/uL Basophils # (Auto) 0.0 0.0-0.1 10^3/uL Immature Granulocyte # (Auto) 0.1 0.0-0.1 10^3/uL Neutrophils % (Manual) 89 % Lymphocytes % (Manual) 4 % Monocytes % (Manual) 5 % Eosinophils % (Manual) 2 % Blood Morphology Comment NORMAL Sodium Level 141 135-145 MMOL/L Potassium Level 4.5 3.6-5.0 MMOL/L Chloride Level 103 98-107 MMOL/L Carbon Dioxide Level 24 21-32 MMOL/L Anion Gap 14 5-14 MMOL/L Blood Urea Nitrogen 15 7-18 MG/DL Creatinine 0.97 0.60-1.30 MG/DL Estimat Glomerular Filtration Rate 112 BUN/Creatinine Ratio 15 Glucose Level 111 H 70-105 MG/DL Calcium Level 9.5 8.5-10.1 MG/DL Corrected Calcium 8.5-10.1 MG/DL Total Bilirubin 2.4 H 0.1-1.0 MG/DL Aspartate Amino Transf (AST/SGOT) 40 H 5-34 U/L Alanine Aminotransferase (ALT/SGPT) 28 0-55 U/L Alkaline Phosphatase 63 40-136 U/L Total Protein 7.9 6.4-8.2 GM/DL Albumin 4.7 H 3.2-4.5 GM/DL Triglycerides Level 55 <150 MG/DL Cholesterol Level 139 < 200 MG/DL LDL Cholesterol Direct 89 1-129 MG/DL VLDL Cholesterol 11 5-40 MG/DL HDL Cholesterol 50 40-60 MG/DL Lipase 995 H 8-78 U/L Serum Alcohol < 10 <10 MG/DL Urine Color YELLOW Urine Clarity CLEAR Urine pH 7.5 5-9 Urine Specific [facility] 1.020 1.016-1.022 Urine Protein 1+ H NEGATIVE Urine Glucose (UA) NEGATIVE NEGATIVE Urine Ketones NEGATIVE NEGATIVE Urine Nitrite NEGATIVE NEGATIVE Urine Bilirubin 1+ H NEGATIVE Urine Urobilinogen 1.0 < = 1.0 MG/DL Urine Leukocyte Esterase NEGATIVE NEGATIVE Urine RBC (Auto) NEGATIVE NEGATIVE Urine RBC NONE /HPF Urine WBC 0-2 /HPF Urine Squamous Epithelial Cells 0-2 /HPF Urine Renal Epithelial Cells NONE /HPF Urine Crystals NONE /LPF Urine Bacteria TRACE /HPF Urine Casts NONE /LPF Urine Mucus LARGE H /LPF Urine Culture Indicated NO (KATE BARBER DO) My Orders Orders - KATE BARBER DO Promethazine Injection (Phenergan Injec (09/23/21 21:09) Ns Iv 1000 Ml (Sodium Chloride 0.9%) (09/23/21 21:09) (KATE BARBER DO) Medications Given in ED Current Medications Medications Dose Ordered Sig/Soniya Route Start Time Stop Time Status Last Admin Dose Admin Fentanyl Citrate 25 mcg ONCE ONCE IVP 09/23/21 23:00 09/23/21 23:01 DC 09/23/21 23:20 25 MCG Iohexol 100 ml ONCE ONCE IV 09/23/21 22:45 09/23/21 23:05 DC 09/23/21 22:44 100 ML Promethazine HCl 25 mg ONCE ONCE IVP 09/23/21 21:30 09/23/21 21:31 DC 09/23/21 21:41 25 MG Sodium Chloride 100 ml ONCE ONCE IV 09/23/21 22:45 09/23/21 23:05 DC 09/23/21 22:44 80 ML (KATE BARBER DO) Vital Signs/I&O 09/23/21 09/23/21 09/24/21 20:50 20:50 00:25 Temp 36.3 Pulse 76 80 Resp 18 18 B/P (MAP) 111/70 (84) 92/61 Pulse Ox 100 99 O2 Delivery Room Air Room Air Room Air 09/23/21 23:59 Intake Total 1000 ml Balance 1000 ml (KATE BARBER DO) Vital Signs/I&O Capillary Refill : (JERALD ALEJANDRE APRN) Departure Communication (Admissions) Family Conversation NAME: RAJANI SANDERSON MED REC#: [id number] PT STATUS: REG ER : 1995 PHYSICIAN: JERALD ALEJANDRE APRN ADMIT DATE: 09/23/21/ER Draft Date of Exam:09/23/21 CT ABDOMEN/PELVIS W INDICATION: Abdominal pain and vomiting. EXAMINATION: CT abdomen and pelvis with contrast, 09/23/2021. All CT scans use one or more of the following dose optimizing techniques: automated exposure control, MA and/or KvP adjustment based on patient size and exam type or iterative reconstruction. COMPARISON: 09/02/2008. FINDINGS: The lack of intraperitoneal fat markedly limits evaluation of the bowel with the appendix not seen with certainty. It is possibly in the anterior aspect of the right lower quadrant with no surrounding inflammatory change seen. There are diffusely distended and fluid-filled small bowel loops throughout the abdomen and pelvis suggesting enteritis. There is no free air. The gallbladder, liver, spleen and pancreas are normal. Adrenal glands and kidneys unremarkable. The lung bases clear. The osseous structures intact. There is a sclerotic focus in the left proximal femur nonspecific but likely a bone island. This is stable from previous CT. IMPRESSION: Findings suggestive of enteritis with overall limited evaluation given lack of intraperitoneal fat. Appendix not seen with certainty but no focal inflammation seen in the right lower quadrant. Dictated on workstation # [id number] Dict: 09/23/21 2250 Trans: 09/23/21 225 PJ [id number] Interpreted by: VIKI GALLEGOS MD Electronically signed by: [id number] that he is feeling better after the Phenergan though he does not feel good. He does have some abdominal pain though it is mostly the lower abdomen. Does not really have much upper abdominal pain. I offered him hospital admission with IV fluids and pain medication and nausea medication versus discharged home with pain medication clear liquid diet nausea medicine. He elects to go on home and assures me he will return if he has any worsening but he would prefer to go home. I will send him home with some hydrocodone. He states he already has Zofran at home. He will follow a clear liquid diet. I instructed him the need to follow-up with [facility] tomorrow to schedule gallbladder ultrasound and to return to ER for any fevers worsening pain uncontrollable vomiting or any other concerns. (JERALD ALEJANDRE APRN) Impression Primary Impression: Pancreatitis Additional Impression: Nausea vomiting and diarrhea Disposition: HOME, SELF-CARE Condition: Stable Departure-Patient Inst. Decision time for Depature: 21:42 (JERALD ALEJANDRE APRN) Referrals: NO,LOCAL PHYSICIAN (PCP/Family) Primary Care Physician Patient Instructions: Pancreatitis Add. Discharge Instructions: Patient to call [facility] tomorrow to make an appointment to be seen for gallbladder ultrasound. Return to ER for any worsening symptoms like intolerable pain, fevers, uncontrollable nausea and vomiting. Clear liquids only for the next 24 hours. Pain medication as directed. Nausea medication as needed. Scripts Hydrocodone/Acetaminophen (Hydrocodone-Acetamin 5-325 mg) 1 Each Tablet 1 TAB PO Q4H PRN for PAIN-MODERATE (5-7), #10 TAB Prov: JERALD ALEJANDRE APRN 09/23/21 Work/School Note: Work Release Form Date Seen in the Emergency Department: Sep 23, 2021 Return to Work: Sep 26, 2021 ATTENDING PHYSICIAN NOTE: I WAS PHYSICALLY PRESENT ER PHYSICIAN WHEN THIS PATIENT WAS IN ER, BUT I WAS NOT INVOLVED IN ANY DECISION MAKING OR ANY CARE OF THIS PATIENT. (KATE BARBER DO) Copy Copies To 1: JONAH BAILEY MD, PETER J APRN Sep 23, 2021 21:25 KATE BARBER DO Sep 24, 2021 01:14
[2021-09-23] MEDS ORDERED: NS IV 1000 ML 1,000 ML IV SCH (21:30)
[2021-09-23] MEDS ORDERED: PROMETHAZINE INJ 25 MG/ML (PHENERGAN) AMP IVP ONE (21:30)
[2021-09-23 21:44] LABS: BASOPHILS % (AUTO) 0 % (0-10); EOSINOPHILS # (AUTO) 0.1 10^3/uL (0.0-0.3); EOSINOPHILS % (AUTO) 1 % (0-10); HEMATOCRIT 45 % (40-54); HEMOGLOBIN 15.2 g/dL (13.3-17.7); LYMPHOCYTES # (AUTO) 0.5 10^3/uL (1.0-4.0); LYMPHOCYTES % (AUTO) 4 % (12-44); MEAN CORPUSCULAR HEMOGLOBIN 31 pg (25-34); MEAN CORPUSCULAR HGB CONC 34 g/dL (32-36); MEAN CORPUSCULAR VOLUME 92 fL (80-99); MEAN PLATELET VOLUME 9.7 fL (9.0-12.2); MONOCYTES # (AUTO) 0.5 10^3/uL (0.0-1.0); MONOCYTES % (AUTO) 4 % (0-12); NEUTROPHILS # (AUTO) 11.5 10^3/uL (1.8-7.8); NEUTROPHILS % (AUTO) 90 % (42-75); PLATELET COUNT 219 10^3/uL (130-400); WHITE BLOOD COUNT 12.7 10^3/uL (4.3-11.0)
[2021-09-23 21:55] LABS: ALBUMIN 4.7 GM/DL (3.2-4.5); CHLORIDE 103 MMOL/L (98-107); POTASSIUM 4.5 MMOL/L (3.6-5.0); SODIUM 141 MMOL/L (135-145)
[2021-09-23 21:57] LABS: CALCIUM 9.5 MG/DL (8.5-10.1)
[2021-09-23 21:58] LABS: GLUCOSE 111 MG/DL (70-105); TOTAL PROTEIN 7.9 GM/DL (6.4-8.2)
[2021-09-23 21:59] LABS: CARBON DIOXIDE 24 MMOL/L (21-32)
[2021-09-23 22:00] LABS: BILIRUBIN,TOTAL 2.4 MG/DL (0.1-1.0)
[2021-09-23 22:01] LABS: ALKALINE PHOSPHATASE 63 U/L (40-136); CREATININE SERUM 0.97 MG/DL (0.60-1.30); GFR ESTIMATED 112
[2021-09-23 22:02] LABS: BUN/CREATININE RATIO 15
[2021-09-23 22:04] LABS: ALANINE AMINOTRANSFERASE 28 U/L (0-55)
[2021-09-23 22:05] LABS: LIPASE 995 U/L (8-78)
[2021-09-23 22:09] LABS: CLARITY,URINE CLEAR; COLOR,URINE YELLOW; GLUCOSE, URINE (UA) NEGATIVE (NEGATIVE); KETONES,URINE NEGATIVE (NEGATIVE); LEUKOCYTE ESTERASE ,URINE NEGATIVE (NEGATIVE); NITRITE,URINE NEGATIVE (NEGATIVE); PH,URINE 7.5 (5-9); PROTEIN,URINE 1+ (NEGATIVE)
[2021-09-23 22:14] LABS: EOSINOPHILS % (MANUAL) 2 %; LYMPHOCYTES % (MANUAL) 4 %; MONOCYTES % (MANUAL) 5 %; NEUTROPHILS % (MANUAL) 89 %; RBC MORPH NORMAL
[2021-09-23 22:15] LABS: BILIRUBIN,URINE 1+ (NEGATIVE)
[2021-09-23 22:17] LABS: BACTERIA,URINE TRACE /HPF; SQUAMOUS EPITHELIAL CELL,UR 0-2 /HPF; WBC,URINE 0-2 /HPF
[2021-09-23 22:25] LABS: TRIGLYCERIDES 55 MG/DL (<150); VLDL CHOLESTEROL 11 MG/DL (5-40)
[2021-09-23 22:30] LABS: CHOLESTEROL 139 MG/DL (< 200)
[2021-09-23] MEDS ORDERED: LACTATED RINGERS 1,000 ML IV SCH (22:30)
[2021-09-23 22:31] LABS: HDL CHOLESTEROL 50 MG/DL (40-60)
[2021-09-23] MEDS ORDERED: IOHEXOL 350 MG/ML 100 ML (OMNIPAQUE 350) VIAL IV ONE (22:45)
[2021-09-23] MEDS ORDERED: HOLD METFORMIN - RECEIVED CONTRAST 20 ML VIAL IV SCH (22:45)
[2021-09-23] MEDS ORDERED: NS 100 ML (IVPB) BAG IV ONE (22:45)
[2021-09-23] MEDS ORDERED: ACHD5005 PO (22:52)
[2021-09-23] MEDS ORDERED: fentaNYL INJ 100 MCG/2 ML AMP IVP ONE (23:00)
--- NOTE | 2021-09-23 23:00 | Diagnostic Imaging Report ---
INDICATION: Abdominal pain and vomiting. EXAMINATION: CT abdomen and pelvis with contrast, 09/23/2021. All CT scans use one or more of the following dose optimizing techniques: automated exposure control, MA and/or KvP adjustment based on patient size and exam type or iterative reconstruction. COMPARISON: 09/02/2008. FINDINGS: The lack of intraperitoneal fat markedly limits evaluation of the bowel with the appendix not seen with certainty. It is possibly in the anterior aspect of the right lower quadrant with no surrounding inflammatory change seen. There are diffusely distended and fluid-filled small bowel loops throughout the abdomen and pelvis suggesting enteritis. There is no free air. The gallbladder, liver, spleen and pancreas are normal. Adrenal glands and kidneys unremarkable. The lung bases clear. The osseous structures intact. There is a sclerotic focus in the left proximal femur nonspecific but likely a bone island. This is stable from previous CT. IMPRESSION: Findings suggestive of enteritis with overall limited evaluation given lack of intraperitoneal fat. Appendix not seen with certainty but no focal inflammation seen in the right lower quadrant. Dictated by: Dictated on workstation # [id number]
[2021-09-24 00:25] VITALS: BP 92/61
== END 2021-09-24 00:25 | disposition home or self-care (01) ==
LOC: EDUNIT# 20:03 → ER 20:05
DX: K85.90 Acute pancreatitis without necrosis or infection, unspecified (principal); Z90.49 Acquired absence of other specified parts of digestive tract
CPT/HCPCS: 74177; 80053; 80061; 81000; 83690; 85007; 85027; 87635; 87804; 99284; G0480; 36415; 80320

== ENCOUNTER 2021-09-25 14:57 | Emergency (ER) | payer SELFPAY ==
[~2021-09-25] VITALS: Ht 182.8 cm; Wt 58.1 kg
[~2021-09-25 14:57] MED LIST changes: +ACHD5005 PO
[2021-09-25] MEDS ORDERED: fentaNYL INJ 100 MCG/2 ML AMP IVP ONE (15:15)
[2021-09-25] MEDS ORDERED: LACTATED RINGERS 1,000 ML IV SCH (15:15)
[2021-09-25] MEDS ORDERED: ONDANSETRON 4 MG/2 ML (SDV) Z0FRAN IVP ONE (15:15)
--- NOTE | 2021-09-25 15:33 | ED Abdominal Pain ---
General Chief Complaint: Abdominal/GI Problems Stated Complaint: ABD PAIN Source of Information: Patient Exam Limitations: No Limitations History of Present Illness Date Seen by Provider: Sep 25, 2021 Time Seen by Provider: 15:31 Initial Comments To ER with epigastric and right upper quadrant pain ongoing. He was seen here 2 days ago by me the same diagnosed with pancreatitis with a lipase of 995. He had a normal CT abdomen pelvis. He had a normal alcohol level and normal triglycerides. No history of this. He has had some ongoing issues with acid reflux and pain. The pain to the right upper quadrant is waxing and waning. Has been ongoing since July. Occasionally when he gets the pain it refers to the right shoulder. He had a gallbladder ultrasound at [facility] yesterday. I called out there and spoke to Clara who reports that this was a normal right upper quadrant ultrasound with no stones or evidence of cholecystitis. He is scheduled to see Dr. Richey from surgery on Tuesday of next week. He denies any fevers or chills. He has had about a 13 pound weight loss since July. Timing/Duration: Getting Worse, Intermittent Severity/Quality: Moderate Location: RUQ Radiation: No Radiation Activities at Onset: None Associated Symptoms: Nausea/Vomiting Allergies and Home Medications Allergies Coded Allergies: NKANo Known Allergies (Verified Allergy, Unknown, 09/02/08) Patient Home Medication List Home Medication List Reviewed: Yes Hydrocodone/Acetaminophen (Hydrocodone-Acetamin 5-325 mg) 1 Each Tablet, 1 TAB PO Q4H PRN for PAIN-MODERATE (5-7) Prescribed by: JERALD ALEJANDRE on 09/23/212251 Lorazepam (Ativan) 0.5 Mg Tablet, 0.5 MG PO BID PRN for ANXIETY Prescribed by: JERALD ALEJANDRE on 08/26/212201 Nystatin (Nystatin) 100,000 Unit/1 Ml Oral.susp, 5 ML PO QID Prescribed by: MARK CASANOVA on 09/13/21 0020 Prednisone (Prednisone) 20 Mg Tab, 40 MG PO DAILY Prescribed by: JERALD ALEJANDRE on 08/26/212200 Review of Systems Review of Systems Constitutional: see HPI EENTM: No Symptoms Reported Respiratory: No Symptoms Reported Gastrointestinal: See HPI, Nausea Genitourinary: No Symptoms Reported Musculoskeletal: no symptoms reported Skin: no symptoms reported Psychiatric/Neurological: No Symptoms Reported Endocrine: No Symptoms Reported Hematologic/Lymphatic: No Symptoms Reported Past Waqyxkv-Wheqas-Mppvvb Hx Immunizations Up To Date Tetanus Booster (TDap): Unknown Seasonal Allergies Seasonal Allergies: No Past Medical History Adenoidectomy, Appendectomy, Orthopedic, Tonsillectomy Reproductive Disorders: No Family Medical History Heart Disease, Diabetes, Hypertension, Other Conditions/Hx Physical Exam Vital Signs Capillary Refill : Height/Weight/BMI Height: 6'1" Weight: 145lbs. oz. 65.536733ha; 17.00 BMI Method:Stated General Appearance: WD/WN, no apparent distress, cachetic, thin, other (Alert and oriented. Pleasant. Anxious appearing.) HEENT: PERRL/EOMI, normal ENT inspection Neck: non-tender, full range of motion Respiratory: no respiratory distress, no accessory muscle use Cardiovascular: regular rate, rhythm, no murmur, other (Little tachycardia with a heart rate of 102) Gastrointestinal: normal bowel sounds, soft, tenderness Neurologic/Psychiatric: alert, normal mood/affect, oriented x 3 Skin: normal color, warm/dry Procedures/Interventions Suture Size: 3-0 Progress/Results/Core Measures Results/Orders Lab Results Laboratory Tests Test 09/25/21 15:25 Range/Units White Blood Count 5.7 4.3-11.0 10^3/uL Red Blood Count 3.88 L 4.30-5.52 10^6/uL Hemoglobin 11.8 #L 13.3-17.7 g/dL Hematocrit 36 L 40-54 % Mean Corpuscular Volume 93 80-99 fL Mean Corpuscular Hemoglobin 30 25-34 pg Mean Corpuscular Hemoglobin Concent 33 32-36 g/dL Red Cell Distribution Width 12.2 10.0-14.5 % Platelet Count 195 130-400 10^3/uL Mean Platelet Volume 9.6 9.0-12.2 fL Immature Granulocyte % (Auto) 0 % Neutrophils (%) (Auto) 55 42-75 % Lymphocytes (%) (Auto) 30 12-44 % Monocytes (%) (Auto) 12 0-12 % Eosinophils (%) (Auto) 4 0-10 % Basophils (%) (Auto) 0 0-10 % Neutrophils # (Auto) 3.1 1.8-7.8 10^3/uL Lymphocytes # (Auto) 1.7 1.0-4.0 10^3/uL Monocytes # (Auto) 0.7 0.0-1.0 10^3/uL Eosinophils # (Auto) 0.2 0.0-0.3 10^3/uL Basophils # (Auto) 0.0 0.0-0.1 10^3/uL Immature Granulocyte # (Auto) 0.0 0.0-0.1 10^3/uL Prothrombin Time 13.6 12.2-14.7 SEC INR Comment 1.0 0.8-1.4 Sodium Level 141 135-145 MMOL/L Potassium Level 4.0 3.6-5.0 MMOL/L Chloride Level 105 98-107 MMOL/L Carbon Dioxide Level 28 21-32 MMOL/L Anion Gap 8 5-14 MMOL/L Blood Urea Nitrogen 9 7-18 MG/DL Creatinine 0.85 0.60-1.30 MG/DL Estimat Glomerular Filtration Rate 125 BUN/Creatinine Ratio 11 Glucose Level 100 70-105 MG/DL Calcium Level 8.6 8.5-10.1 MG/DL Corrected Calcium 8.6 8.5-10.1 MG/DL Total Bilirubin 0.8 0.1-1.0 MG/DL Aspartate Amino Transf (AST/SGOT) 37 H 5-34 U/L Alanine Aminotransferase (ALT/SGPT) 29 0-55 U/L Alkaline Phosphatase 47 40-136 U/L Total Protein 6.5 6.4-8.2 GM/DL Albumin 4.0 3.2-4.5 GM/DL Lipase 33 8-78 U/L My Orders Orders - JERALD ALEJANDRE REED DIPPER Cbc With Automated Diff (09/25/21 15:12) Comprehensive Metabolic Panel (09/25/21 15:12) Lipase (09/25/21 15:12) Ed Iv/Invasive Line Start (09/25/21 15:12) Protime With Inr (09/25/21 15:12) Lactated Ringers (Lr 1000 Ml Iv Solution (09/25/21 15:15) Fentanyl Inj (Sublimaze Injection) (09/25/21 15:15) Ondansetron Injection (Zofran Injectio (09/25/21 15:15) Hiv 1&2 Antibody (09/25/21 15:26) Acute Abd Series (09/25/21 16:13) Lorazepam Injection (Ativan Injection) (09/25/21 16:45) Medications Given in ED Current Medications Medications Dose Ordered Sig/Soniya Route Start Time Stop Time Status Last Admin Dose Admin Fentanyl Citrate 50 mcg ONCE ONCE IVP 09/25/21 15:15 09/25/21 15:16 DC 09/25/21 15:46 50 MCG Ondansetron HCl 8 mg ONCE ONCE IVP 09/25/21 15:15 09/25/21 15:16 DC 09/25/21 15:46 8 MG Departure Impression Primary Impression: Abdominal pain Disposition: HOME, SELF-CARE Condition: Stable Departure-Patient Inst. Decision time for Depature: 16:34 Referrals: NO,LOCAL PHYSICIAN (PCP/Family) Primary Care Physician Patient Instructions: Abdominal Pain, Adult ED Add. Discharge Instructions: 1. Use your pain medication as directed. Follow-up with Dr. Richey next week as scheduled. Return to ER for any worsening. All discharge instructions reviewed with patient and/or family. Voiced understanding. Work/School Note: Work Release Form Date Seen in the Emergency Department: Sep 25, 2021 Return to Work: Sep 27, 2021 JERALD ALEJANDRE APRN Sep 25, 2021 15:33
[2021-09-25 15:38] LABS: BASOPHILS % (AUTO) 0 % (0-10); EOSINOPHILS # (AUTO) 0.2 10^3/uL (0.0-0.3); EOSINOPHILS % (AUTO) 4 % (0-10); HEMATOCRIT 36 % (40-54); HEMOGLOBIN 11.8 g/dL (13.3-17.7); LYMPHOCYTES # (AUTO) 1.7 10^3/uL (1.0-4.0); LYMPHOCYTES % (AUTO) 30 % (12-44); MEAN CORPUSCULAR HEMOGLOBIN 30 pg (25-34); MEAN CORPUSCULAR HGB CONC 33 g/dL (32-36); MEAN CORPUSCULAR VOLUME 93 fL (80-99); MEAN PLATELET VOLUME 9.6 fL (9.0-12.2); MONOCYTES # (AUTO) 0.7 10^3/uL (0.0-1.0); MONOCYTES % (AUTO) 12 % (0-12); NEUTROPHILS # (AUTO) 3.1 10^3/uL (1.8-7.8); NEUTROPHILS % (AUTO) 55 % (42-75); PLATELET COUNT 195 10^3/uL (130-400); WHITE BLOOD COUNT 5.7 10^3/uL (4.3-11.0)
[2021-09-25 15:49] LABS: PROTHROMBIN TIME PATIENT 13.6 SEC (12.2-14.7)
[2021-09-25 15:52] LABS: CALCIUM 8.6 MG/DL (8.5-10.1)
[2021-09-25 15:53] LABS: TOTAL PROTEIN 6.5 GM/DL (6.4-8.2)
[2021-09-25 15:55] LABS: BILIRUBIN,TOTAL 0.8 MG/DL (0.1-1.0)
[2021-09-25 15:56] LABS: CREATININE SERUM 0.85 MG/DL (0.60-1.30)
--- NOTE | 2021-09-25 16:39 | Diagnostic Imaging Report ---
EXAMINATION: Abdominal series and chest radiograph. HISTORY: Abdominal pain. COMPARISON: None available. FINDINGS: Bowel gas pattern is normal. No dilated bowel or free air. The lungs are clear. No edema. No pneumonia. No pleural effusion. No pneumothorax. Heart is normal in size. IMPRESSION: 1. Clear lungs. 2. Normal bowel gas pattern. Dictated by: Dictated on workstation # [id number]
[2021-09-25] MEDS ORDERED: LORazepam INJ 2 MG/ML (ATIVAN) VIAL IVP PRN (16:45)
[2021-09-25 17:07] VITALS: BP 114/74
== END 2021-09-25 17:08 | disposition home or self-care (01) ==
LOC: EDUNIT# 14:57 → ER 14:59
DX: R10.13 Epigastric pain (principal); R10.11 Right upper quadrant pain; Z87.19 Personal history of other diseases of the digestive system
CPT/HCPCS: 36415; 74022; 80053; 83690; 85025; 85610; 86703

== ENCOUNTER 2021-10-07 02:52 | Emergency (ER) | payer SELFPAY ==
[2021-10-07 03:22] LABS: BILIRUBIN,URINE NEGATIVE (NEGATIVE); CLARITY,URINE CLEAR; COLOR,URINE YELLOW; GLUCOSE, URINE (UA) NEGATIVE (NEGATIVE); KETONES,URINE NEGATIVE (NEGATIVE); LEUKOCYTE ESTERASE ,URINE NEGATIVE (NEGATIVE); NITRITE,URINE NEGATIVE (NEGATIVE); PH,URINE 6.5 (5-9); PROTEIN,URINE NEGATIVE (NEGATIVE)
[2021-10-07 03:28] LABS: BASOPHILS # (AUTO) 0.1 10^3/uL (0.0-0.1); BASOPHILS % (AUTO) 1 % (0-10); EOSINOPHILS # (AUTO) 0.4 10^3/uL (0.0-0.3); EOSINOPHILS % (AUTO) 4 % (0-10); HEMATOCRIT 40 % (40-54); HEMOGLOBIN 13.6 g/dL (13.3-17.7); LYMPHOCYTES # (AUTO) 3.7 10^3/uL (1.0-4.0); LYMPHOCYTES % (AUTO) 36 % (12-44); MEAN CORPUSCULAR HEMOGLOBIN 31 pg (25-34); MEAN CORPUSCULAR HGB CONC 34 g/dL (32-36); MEAN CORPUSCULAR VOLUME 92 fL (80-99); MEAN PLATELET VOLUME 9.1 fL (9.0-12.2); MONOCYTES # (AUTO) 0.9 10^3/uL (0.0-1.0); MONOCYTES % (AUTO) 8 % (0-12); NEUTROPHILS # (AUTO) 5.3 10^3/uL (1.8-7.8); NEUTROPHILS % (AUTO) 51 % (42-75); PLATELET COUNT 271 10^3/uL (130-400); WHITE BLOOD COUNT 10.4 10^3/uL (4.3-11.0)
[2021-10-07 03:33] LABS: BACTERIA,URINE NEGATIVE /HPF; SQUAMOUS EPITHELIAL CELL,UR 0-2 /HPF
[2021-10-07 03:39] LABS: ALBUMIN 4.5 GM/DL (3.2-4.5); CHLORIDE 102 MMOL/L (98-107); POTASSIUM 3.7 MMOL/L (3.6-5.0); SODIUM 140 MMOL/L (135-145)
[2021-10-07 03:40] LABS: AMYLASE 44 U/L (25-125); CALCIUM 9.4 MG/DL (8.5-10.1)
[2021-10-07 03:41] LABS: GLUCOSE 95 MG/DL (70-105); TOTAL PROTEIN 7.4 GM/DL (6.4-8.2)
[2021-10-07 03:41] LABS: AMPHETAMINE SCREEN, URINE NEGATIVE (NEGATIVE); BARBITURATE SCREEN URINE NEGATIVE (NEGATIVE); BENZODIAZEPINES SCREEN URINE NEGATIVE (NEGATIVE); CANNABINOID SCREEN, URINE POSITIVE (NEGATIVE); COCAINE SCREEN URINE NEGATIVE (NEGATIVE); METHADONE STAT NEGATIVE (NEGATIVE); METHAMPHETAMINE SCREEN URINE S NEGATIVE (NEGATIVE); OPIATE SCREEN URINE POSITIVE (NEGATIVE); OXYCODONE STAT NEGATIVE (NEGATIVE); PROPOXYPHENE STAT NEGATIVE (NEGATIVE); TRICYCLIC ANTIDEPRESSANTS SCRE NEGATIVE (NEGATIVE)
[2021-10-07 03:42] LABS: CARBON DIOXIDE 27 MMOL/L (21-32)
[2021-10-07 03:43] LABS: BILIRUBIN,TOTAL 1.5 MG/DL (0.1-1.0)
[2021-10-07 03:45] LABS: ALKALINE PHOSPHATASE 61 U/L (40-136); CREATININE SERUM 0.85 MG/DL (0.60-1.30); GFR ESTIMATED 125
[2021-10-07 03:46] LABS: BUN/CREATININE RATIO 13
[2021-10-07 03:48] LABS: ALANINE AMINOTRANSFERASE 104 U/L (0-55); MAGNESIUM 1.9 MG/DL (1.6-2.4)
[2021-10-07 03:51] LABS: ERYTHROCYTE SEDIMENTATION RATE 3 MM/HR (0-15)
[2021-10-07] MEDS ORDERED: PANT40TA2 PO (04:18)
[2021-10-07] MEDS ORDERED: SUCR1TAB36 PO (04:18)
--- NOTE | 2021-10-07 04:18 | ED Chest Pain ---
General Chief Complaint: Chest Pain Stated Complaint: CHEST PAIN Nursing Triage Note: TO ED VIA POV AND AMBULATORY TO ROOM 7 WITH C/O LEFT SIDE CP FOR 2 WEEKS. Source: patient Allergies and Home Medications Allergies Coded Allergies: JOEYANo Known Allergies (Verified Allergy, Unknown, 09/02/08) Patient Home Medication List Hydrocodone/Acetaminophen (Hydrocodone-Acetamin 5-325 mg) 1 Each Tablet, 1 TAB PO Q4H PRN for PAIN-MODERATE (5-7) Prescribed by: JERALD ALEJANDRE on 09/23/212251 Lorazepam (Ativan) 0.5 Mg Tablet, 0.5 MG PO BID PRN for ANXIETY Prescribed by: JERALD ALEJANDRE on 08/26/212201 Nystatin (Nystatin) 100,000 Unit/1 Ml Oral.susp, 5 ML PO QID Prescribed by: MARK CASANOVA on 09/13/2119 Pantoprazole Sodium (Protonix) 40 Mg Tablet.dr, 40 MG PO DAILY Prescribed by: KATE BARBER on 10/07/21417 Prednisone (Prednisone) 20 Mg Tab, 40 MG PO DAILY Prescribed by: JERALD ALEJANDRE on 08/26/212200 Sucralfate (Carafate) 1 Gm Tablet, 1 GM PO QID Prescribed by: KATE BARBER on 10/07/21417 Past [id number]-Hlxxti-Pcgujy Hx Patient Social History Tobacco Use?: Yes E-Cig or Vaping type used: Nicotine Substance use?: No Alcohol Use?: No Immunizations Up To Date Tetanus Booster (TDap): Unknown Seasonal Allergies Seasonal Allergies: No Past Medical History Surgery/Hospitalization HX: PANCREATITIS Adenoidectomy, Appendectomy, Orthopedic, Tonsillectomy Reproductive Disorders: No Family Medical History Heart Disease, Diabetes, Hypertension, Other Conditions/Hx Physical Exam Vital Signs Vital Signs - First Documented 10/07/21 03:12 Temp 36.8 Pulse 77 Resp 16 B/P (MAP) 115/68 (84) Pulse Ox 98 Capillary Refill : Less Than 3 Seconds Height, Weight, BMI Height: 6'1" Weight: 145lbs. oz. 65.147521fn; 17.00 BMI Method:Stated Procedures/Interventions Suture Size: 3-0 Progress/Results/Core Measures Results/Orders Lab Results Laboratory Tests Test 10/07/21 03:13 10/07/21 03:19 Range/Units Urine Color YELLOW Urine Clarity CLEAR Urine pH 6.5 5-9 Urine Specific [place] 1.020 1.016-1.022 Urine Protein NEGATIVE NEGATIVE Urine Glucose (UA) NEGATIVE NEGATIVE Urine Ketones NEGATIVE NEGATIVE Urine Nitrite NEGATIVE NEGATIVE Urine Bilirubin NEGATIVE NEGATIVE Urine Urobilinogen 0.2 < = 1.0 MG/DL Urine Leukocyte Esterase NEGATIVE NEGATIVE Urine RBC (Auto) NEGATIVE NEGATIVE Urine RBC NONE /HPF Urine WBC NONE /HPF Urine Squamous Epithelial Cells 0-2 /HPF Urine Crystals NONE /LPF Urine Bacteria NEGATIVE /HPF Urine Casts NONE /LPF Urine Mucus LARGE H /LPF Urine Culture Indicated NO Urine Opiates Screen POSITIVE H NEGATIVE Urine Oxycodone Screen NEGATIVE NEGATIVE Urine Methadone Screen NEGATIVE NEGATIVE Urine Propoxyphene Screen NEGATIVE NEGATIVE Urine Barbiturates Screen NEGATIVE NEGATIVE Ur Tricyclic Antidepressants Screen NEGATIVE NEGATIVE Urine Phencyclidine Screen NEGATIVE NEGATIVE Urine Amphetamines Screen NEGATIVE NEGATIVE Urine Methamphetamines Screen NEGATIVE NEGATIVE Urine Benzodiazepines Screen NEGATIVE NEGATIVE Urine Cocaine Screen NEGATIVE NEGATIVE Urine Cannabinoids Screen POSITIVE H NEGATIVE White Blood Count 10.4 4.3-11.0 10^3/uL Red Blood Count 4.39 4.30-5.52 10^6/uL Hemoglobin 13.6 13.3-17.7 g/dL Hematocrit 40 40-54 % Mean Corpuscular Volume 92 80-99 fL Mean Corpuscular Hemoglobin 31 25-34 pg Mean Corpuscular Hemoglobin Concent 34 32-36 g/dL Red Cell Distribution Width 12.4 10.0-14.5 % Platelet Count 271 130-400 10^3/uL Mean Platelet Volume 9.1 9.0-12.2 fL Immature Granulocyte % (Auto) 1 % Neutrophils (%) (Auto) 51 42-75 % Lymphocytes (%) (Auto) 36 12-44 % Monocytes (%) (Auto) 8 0-12 % Eosinophils (%) (Auto) 4 0-10 % Basophils (%) (Auto) 1 0-10 % Neutrophils # (Auto) 5.3 1.8-7.8 10^3/uL Lymphocytes # (Auto) 3.7 1.0-4.0 10^3/uL Monocytes # (Auto) 0.9 0.0-1.0 10^3/uL Eosinophils # (Auto) 0.4 H 0.0-0.3 10^3/uL Basophils # (Auto) 0.1 0.0-0.1 10^3/uL Immature Granulocyte # (Auto) 0.1 0.0-0.1 10^3/uL Erythrocyte Sedimentation Rate 3 0-15 MM/HR Sodium Level 140 135-145 MMOL/L Potassium Level 3.7 3.6-5.0 MMOL/L Chloride Level 102 98-107 MMOL/L Carbon Dioxide Level 27 21-32 MMOL/L Anion Gap 11 5-14 MMOL/L Blood Urea Nitrogen 11 7-18 MG/DL Creatinine 0.85 0.60-1.30 MG/DL Estimat Glomerular Filtration Rate 125 BUN/Creatinine Ratio 13 Glucose Level 95 70-105 MG/DL Calcium Level 9.4 8.5-10.1 MG/DL Corrected Calcium 9.0 8.5-10.1 MG/DL Magnesium Level 1.9 1.6-2.4 MG/DL Total Bilirubin 1.5 H 0.1-1.0 MG/DL Aspartate Amino Transf (AST/SGOT) 36 H 5-34 U/L Alanine Aminotransferase (ALT/SGPT) 104 H 0-55 U/L Alkaline Phosphatase 61 40-136 U/L Troponin I < 0.028 <0.028 NG/ML C-Reactive Protein High Sensitivity 0.05 0.00-0.50 MG/DL Total Protein 7.4 6.4-8.2 GM/DL Albumin 4.5 3.2-4.5 GM/DL Amylase Level 44 25-125 U/L Serum Alcohol < 10 <10 MG/DL My Orders Orders - KATE BARBER DO Ed Iv/Invasive Line Start (10/07/21 03:14) Ekg Tracing (10/07/21 03:14) Monitor-Rhythm Ecg Trace Only (10/07/21 03:14) Chest 1 View, Ap/Pa Only (10/07/21 03:14) Alcohol (10/07/21 03:14) Amylase (10/07/21 03:14) Cbc With Automated Diff (10/07/21 03:14) Comprehensive Metabolic Panel (10/07/21 03:14) Hs C Reactive Protein (10/07/21 03:14) Drug Screen Stat (Urine) (10/07/21 03:14) Magnesium (10/07/21 03:14) Ua Culture If Indicated (10/07/21 03:14) Erythrocyte Sedimentation Rate (10/07/21 03:14) Troponin I Fani (10/07/21 03:14) Hepatitis Panel Acute (10/07/21 04:06) Lipase (10/07/21 04:08) Hiv 1&2 Antibody (10/07/21 04:08) Pantoprazole Tablet (Protonix Tablet) (10/07/21 04:30) Lidocaine 2% Viscous 15 Ml (Xylocaine Vi (10/07/21 04:30) Antacid Suspension (Mylanta Suspension (10/07/21 04:30) Vital Signs/I&O 10/07/21 03:12 Temp 36.8 Pulse 77 Resp 16 B/P (MAP) 115/68 (84) Pulse Ox 98 Blood Pressure Mean: 84 Departure Impression Primary Impression: Chest pain Additional Impressions: POSSIBLE GERD Elevated liver enzymes Marijuana use Oral thrush Disposition: 01 HOME, SELF-CARE Condition: Stable Departure-Patient Inst. Decision time for Depature: 04:15 Referrals: JORDEN NOLASCO MD (PCP/Family) Primary Care Physician Patient Instructions: Acid Reflux and GERD in Adults (DC), Chest Pain (DC), Liver Function Test, Marijuana Use and Addiction (DC), Thrush (DC) Add. Discharge Instructions: CLEAR LIQUIDS--WATER, BROTH, JELLO, GATORADE BRATS DIET--BANANAS, RICE, APPLESAUCE, TOAST, SALTINES NO SMOKING NO ALCOHOL NO DRUGS, INCLUDING NO MARIJUANA FOLLOW UP WITH DR. NOLASCO THIS WEEK FOR FURTHER CARE All discharge instructions reviewed with patient and/or family. Voiced understanding. Scripts Fluconazole (Diflucan) 200 Mg Tablet 200 MG PO DAILY, #15 TAB Prov: KATE BARBER K DO 10/07/21 Sucralfate (Carafate) 1 Gm Tablet 1 GM PO QID, #60 TAB Prov: NISSA BARBERA K DO 10/07/21 Pantoprazole Sodium (Protonix) 40 Mg Tablet. 40 MG PO DAILY, #15 TAB Prov: KATE BARBER K DO 10/07/21 NISSA BARBERA K DO Oct 07, 2021 04:18
[2021-10-07] MEDS ORDERED: FLUC200T PO (04:24)
[2021-10-07] MEDS ORDERED: LIDOCAINE 2% VISCOUS 15 ML UDC PO ONE (04:30)
[2021-10-07] MEDS ORDERED: PANTOPRAZOLE 40 MG (PROTONIX) TAB PO ONE (04:30)
[2021-10-07] MEDS ORDERED: FLUCONAZOLE 150 MG TABLET (ED ONLY) PO ONE (04:30)
[2021-10-07] MEDS ORDERED: ANTACID SUSP 30 ML UDC (MYLANTA) PO ONE (04:30)
[2021-10-07 04:33] VITALS: BP 114/64
--- NOTE | 2021-10-07 06:35 | Diagnostic Imaging Report ---
INDICATION: Chest pain. FINDINGS: Portable chest. Lungs are well-aerated and clear. The heart is not enlarged. There is no pulmonary edema. No hilar adenopathy. No pneumothorax or pleural effusion. No bony abnormalities. IMPRESSION: Normal portable chest. No significant change when compared with 10/03/2016. Dictated by: Dictated on workstation # [id number]
[2021-10-07 21:03] LABS: HEPATITIS C ANTIBODY C Non-Reactive (Non-Reactive)
== END 2021-10-07 04:34 | disposition home or self-care (01) ==
LOC: EDUNIT# 02:52 → ER 02:55
DX: R07.9 Chest pain, unspecified (principal); R74.8 Abnormal levels of other serum enzymes; F12.90 Cannabis use, unspecified, uncomplicated; B37.0 Candidal stomatitis
CPT/HCPCS: 71045; 80053; 80074; 80306; 81000; 82150; 83690; 83735; 84484; 85025; 85652; 86141; 86703; 93041; G0480; 36415; 80320; 93005